=== PATIENT | female | born 2000 | race Caucasian/White ===

== ENCOUNTER 2018-01-22 12:14 | Emergency (ER) | payer MEDICAID ==
[2017-07-15 01:18] VITALS: Wt 63.5 kg
[~2018-01-22 12:14] MED LIST: IBUP800T37 PO; LOR5/325 PO; PREN-127 PO
--- NOTE | 2018-01-22 12:26 | ER Report ---
History and Physical Time Seen By MD: 12:26 Hx. of Stated Complaint: AROUND 5AM TODAY, PT WENT TO STAND UP, RT FOOT WAS ALSEEP. SHE STOOD UP, SHE HEARD A SNAP AND FELT A WARM SENSATION UP LEG HPI/ROS CHIEF COMPLAINT: Right ankle pain HISTORY OF PRESENT ILLNESS: 17-year-old female patient presents to emergency room with complaint of right ankle pain. Patient states that she was this morning while she was in bed. She got up to put the baby in a crib. She states that when she did that she felt a popping in her ankle. She states that she had significant amounts of pain. She rated the pain a 10 out of 10 at that time. She states that she'll most passed out because pain was so significant. She states that since then she's not been able to bear any weight on that foot. She states that she does have no previous history of injury to the ankle. She states that currently she is pain-free. She states when she moves her ankle the pain does go up to a 5 out of 10. She did take hydrocodone which was left over from her delivery. Patient states she does have some tingling to the bottom of her foot. REVIEW OF SYSTEMS: Respiratory: No cough, no dyspnea. Cardiovascular: No chest pain, no palpitations. Gastrointestinal: No vomiting, no abdominal pain. Musculoskeletal: As noted above Allergies: Coded Allergies: No Known Drug Allergies (Unverified , 01/22/18) Home Meds Active Scripts Ibuprofen (IBUPROFEN) 800 Mg Tablet, 800 MG PO Q8H, #30 TAB 0 Refills Prov:JOHN WHEAT DO 07/16/17 Hydrocodone Bit/Acetaminophen (HYDROCODON-ACETAMINOPHEN 5-325) 1 Each Tablet, 1- 2 EACH PO Q4H PRN for PAIN, #30 TAB 0 Refills Prov:JOHN WHEAT DO 07/16/17 Reported Medications Vits W-Ca,Fe,Fa(<1MG) ( VITAMINS) 1 Each Tablet, 1 EACH PO DAILY, TAB 07/15/17 Past Medical/Surgical History Patient has a past medical history of reflux. Patient has no pertinent surgical history. Reviewed Nurses Notes: Yes Hx Smoking: No Smoking Status: Never Smoker Exposure to Second Hand Smoke?: No Hx Substance Use Disorder: No Hx Alcohol Use: No Constitutional Vital Sign - Last 24 Hours 10/08/0601/22/18 01/22/18 01/22/18 12:14 12:17 12:19 12:29 Temp 98.2 Pulse ??? 93 88 Resp 14 B/P (MAP) 116/88 116/88 (97) Pulse Ox 97 99 O2 Delivery Room Air 01/22/18 01/22/18 01/22/18 01/22/18 12:30 12:44 12:59 13:00 Pulse 91 94 B/P (MAP) 113/81 (92) 109/74 (86) Pulse Ox 98 95 01/22/18 01/22/18 01/22/18 01/22/18 13:14 13:29 13:30 13:44 Pulse 87 82 85 B/P (MAP) 111/65 (80) Pulse Ox 96 96 94 01/22/18 01/22/18 13:59 14:00 Pulse 105 B/P (MAP) ???/??? (1665) Pulse Ox 96 Physical Exam General appearance: Alert no distress. Respiratory: Chest is non tender, lungs are clear to auscultation. Cardiac: Regular rate and rhythm. Musculoskeletal: Patient does have slight bruising to the right ankle, she has tenderness over the lateral malleolus. There is no bruising noted. Patient has good strength with plantarflexion and dorsiflexion. DIFFERENTIAL DIAGNOSIS: After history and physical exam differential diagnosis was considered for sprain, contusion, fracture. Medical Decision Making EKG/Imaging Imaging EXAMINATION: Right ankle 3 views HISTORY: Fall with pain. COMPARISON: None. FINDINGS: No evidence of acute fracture or dislocation about the right ankle. Normal alignment at the ankle mortise. Soft tissues are unremarkable. IMPRESSION: Negative right ankle. Report Dictated By: Graham Kruse MD at 01/22/2018 1:51 PM Report E-Signed By: Graham Kruse MD at 01/22/2018 1:52 PM ED Course/Re-evaluation ED Course Patient was administered examined, history and physical were obtained. Differential diagnoses were considered. On examination patient had mild swelling. She had some tenderness to the lateral malleolus, there is no weakness with dorsiflexion or plantarflexion. X-rays done of the right ankle which was negative. I discussed the findings with the patient. We will go ahead and discharge her home. Patient was placed in an Fili wrap. She is to follow-up with her primary care provider normally. She's instructed to return to the emergency room if condition worsens. Patient verbalized understanding and agreement with plan. Decision to Disposition Date: Jan 22, 2018 Decision to Disposition Time: 14:00 Depart Departure Latest Vital Signs Vital Signs Date Time Temp Pulse Resp B/P (MAP) Pulse Ox O2 Delivery O2 Flow Rate FiO2 01/22/18 14:00 ???/??? (1665) 01/22/18 13:59 105 96 01/22/18 12:17 98.2 14 Room Air Impression: Primary Impression: Ankle sprain Condition: Improved Disposition: HOME OR SELF-CARE Referrals: JOHN WHEAT DO (PCP) Patient Instructions: Ankle Sprain (ED) Additional Instructions: Limit activity by pain. Ice the ankle 2-3 times a day for 10-15 minutes. Return to the ER if condition worsens. Follow up with your primary care provider in 1 week. Continue to use the crutches until you can put more weight on your foot. Take Tylenol or Ibuprofen as needed for pain. In a couple of days start doing alphabet exercises in warm water. Problem Qualifiers Primary Impression: Ankle sprain Encounter type: initial encounter Involved ligament of ankle: unspecified ligament Laterality: right Qualified Codes: S93.401A - Sprain of unspecified ligament of right ankle, initial encounter TRAVIS CIFUENTES Jan 22, 2018 12:26
--- NOTE | 2018-01-22 13:56 | RADIOLOGY IMAGING REPORT ---
FACILITY: [facility] [place] PATIENT NAME: Noni Heard : 2000 MR: [id number] V: [id number] EXAM DATE: ORDERING PHYSICIAN: TRAVIS CIFUENTES TECHNOLOGIST: Location: [facility] [place] Patient: Noni Heard : 2000 Visit/Account:[id number] Date of Sevice: 01/22/2018 EXAMINATION: Right ankle 3 views HISTORY: Fall with pain. COMPARISON: None. FINDINGS: No evidence of acute fracture or dislocation about the right ankle. Normal alignment at the ankle mo rtise. Soft tissues are unremarkable. IMPRESSION: Negative right ankle. Report Dictated By: Graham Kruse MD at 01/22/2018 1:51 PM Report E-Signed By: Graham Kruse MD at 01/22/2018 1:52 PM WSN:[id number]
== END 2018-01-22 14:10 | disposition home or self-care (01) ==
LOC: ER 12:16
DX: S93.401A Sprain of unspecified ligament of right ankle, initial encounter (principal)
CPT/HCPCS: 99283

== ENCOUNTER 2018-05-20 18:33 | Emergency (ER) | payer MEDICAID ==
[2017-07-15 01:18] VITALS: Wt 59.0 kg
[2018-05-20] MEDS ORDERED: LORA10CA3 PO (18:42)
--- NOTE | 2018-05-20 18:54 | ER Report ---
History and Physical Time Seen By MD: 18:44 Hx. of Stated Complaint: PT HAS HAD SORE THROAT INTERMITTANTLY FOR SEVERAL WEEKS; TODAY NOTED SWELLING IN LYMPH NODES, AND SWELLING IN FACE, WITH PAIN AND ITCHING HPI/ROS CHIEF COMPLAINT: Sore throat, swelling to right cheek HISTORY OF PRESENT ILLNESS: 17-year-old female patient presents to the emergency room with complaint of sore throat and swelling to right cheek. Patient states that she's had a sore throat intermittently for 3 weeks. She states for the last week has been very constant. She denies having any fevers, chills, nausea, vomiting or diarrhea. Patient states she is able to eat and drink without any difficulties. Patient states that she has had swelling to the right cheek for the past 2 days. She states that yesterday was in so bad that stays gotten sign ificantly worse. Patient does have a pimple located on the right cheek which she states she did pick at. She states that she does have some pain, however she does feel that that is tolerable. REVIEW OF SYSTEMS: Respiratory: No cough, no dyspnea. Cardiovascular: No chest pain, no palpitations. Gastrointestinal: No vomiting, no abdominal pain. Musculoskeletal: No back pain. Allergies: Coded Allergies: No Known Drug Allergies (Unverified , 01/22/18) Home Meds Active Scripts Cephalexin 500 Mg Tab (KEFLEX 500 MG TAB) 500 Mg Tablet, 500 MG PO Q6H, #28 TAB Prov:TRAVIS CIFUENTES 05/20/18 Sulfamethoxazole/Trimet 800-160 Mg Tab (BACTRIM DS TABLET) 1 Each Tablet, 1 TAB PO Q12H, #14 TAB Prov:TRAVIS CIFUENTES 05/20/18 Ibuprofen (IBUPROFEN) 800 Mg Tablet, 800 MG PO Q8H, #30 TAB 0 Refills Prov:JOHN WHEAT DO 07/16/17 Reported Medications Loratadine (CLARITIN) 10 Mg Capsule, 10 MG PO, CAPSULE 05/20/18 Discontinued Reported Medications Vits W-Ca,Fe,Fa(<1MG) ( VITAMINS) 1 Each Tablet, 1 EACH PO DAILY, TAB 07/15/17 Discontinued Scripts Hydrocodone Bit/Acetaminophen (HYDROCODON-ACETAMINOPHEN 5-325) 1 Each Tablet, 1- 2 EACH PO Q4H PRN for PAIN, #30 TAB 0 Refills Prov:JOHN WHEAT DO 07/16/17 Past Medical/Surgical History Patient has a past medical history of reflux, occasional alcohol use. Patient denies any surgical history. Reviewed Nurses Notes: Yes Hx Smoking: No Smoking Status: Never Smoker Exposure to Second Hand Smoke?: No Hx Substance Use Disorder: No Hx Alcohol Use: Yes (OCC) Constitutional Vital Sign - Last 24 Hours 05/20/18 05/20/18 05/20/18 05/20/18 18:36 18:37 18:48 19:00 Temp 98.1 Pulse 83 82 Resp 20 B/P (MAP) 104/79 (87) 104/79 103/79 (87) Pulse Ox 98 98 O2 Delivery Room Air 05/20/18 05/20/18 05/20/18 05/20/18 19:03 19:18 19:30 19:33 Pulse 82 83 89 B/P (MAP) 99/77 (84) Pulse Ox 94 93 97 05/20/18 05/20/18 05/20/18 19:48 19:53 20:00 Pulse 91 94 B/P (MAP) 94/75 (81) Pulse Ox 98 98 Physical Exam General Appearance: The patient is alert, has no immediate need for airway protection and no current signs of toxicity. Respiratory: Chest is non tender, lungs are clear to auscultation. Cardiac: regular rate and rhythm Gastrointestinal: Abdomen is soft and non tender, no masses, bowel sounds normal. Musculoskeletal: Neck: Neck is supple and non tender. Extremities have full range of motion and are non tender. Skin: No rashes or lesions. Patient does have swelling to the right cheek, is erythematous, warm to the touch. I believe that it is originating from the pimple. DIFFERENTIAL DIAGNOSIS: After history and physical exam differential diagnosis was considered for cellulitis, mono, viral syndrome. Medical Decision Making Data Points Result Diagram: 05/20/18191705/20/181917 Laboratory Hematology Test 05/20/18 19:18 Red Blood Count 5.08 M/uL (4.17-5.56) Mean Corpuscular Volume 82.5 fL (80.0-96.0) Mean Corpuscular Hemoglobin 28.2 pg (26.0-33.0) Mean Corpuscular Hemoglobin Concent 34.2 g/dL (32.0-36.0) Red Cell Distribution Width 12.9 % (11.5-14.5) Mean Platelet Volume 8.3 fL (7.2-11.1) Neutrophils (%) (Auto) 73.0 % (39.4-72.5) Lymphocytes (%) (Auto) 18.6 % (17.6-49.6) Monocytes (%) (Auto) 5.4 % (4.1-12.4) Eosinophils (%) (Auto) 2.6 % (0.4-6.7) Basophils (%) (Auto) 0.4 % (0.3-1.4) Nucleated RBC Relative Count (auto) 0.0 /100WBC Neutrophils # (Auto) 9.1 K/uL (2.0-7.4) Lymphocytes # (Auto) 2.3 K/uL (1.3-3.6) Monocytes # (Auto) 0.7 K/uL (0.3-1.0) Eosinophils # (Auto) 0.3 K/uL (0.0-0.5) Basophils # (Auto) 0.0 K/uL (0.0-0.1) Nucleated RBC Absolute Count (auto) 0.00 K/uL Sodium Level 139 mmol/L (137-145) Potassium Level 3.8 mmol/L (3.5-5.0) Chloride Level 109 mmol/L (98-107) Carbon Dioxide Level 26 mmol/L (22-31) Blood Urea Nitrogen 10 mg/dl (7-18) Creatinine 0.70 mg/dl (0.52-1.04) Glomerular Filtration Rate Calc > 60.0 Random Glucose 80 mg/dl (75-110) Calcium Level 9.1 mg/dl (8.4-10.2) Total Bilirubin 0.2 mg/dl (0.2-1.3) Aspartate Amino Transf (AST/SGOT) 21 U/L (0-35) Alanine Aminotransferase (ALT/SGPT) 21 U/L (0-56) Alkaline Phosphatase 100 U/L (0-126) Total Protein 8.1 g/dl (6.3-8.2) Albumin 4.4 g/dl (3.5-5.0) Monoscreen Negative (NEGATIVE) Chemistry Test 05/20/18 19:18 White Blood Count 12.4 k/uL (4.5-11.0) Red Blood Count 5.08 M/uL (4.17-5.56) Hemoglobin 14.3 g/dL (12.0-16.0) Hematocrit 41.9 % (34.0-47.0) Mean Corpuscular Volume 82.5 fL (80.0-96.0) Mean Corpuscular Hemoglobin 28.2 pg (26.0-33.0) Mean Corpuscular Hemoglobin Concent 34.2 g/dL (32.0-36.0) Red Cell Distribution Width 12.9 % (11.5-14.5) Platelet Count 304 K/uL (150-450) Mean Platelet Volume 8.3 fL (7.2-11.1) Neutrophils (%) (Auto) 73.0 % (39.4-72.5) Lymphocytes (%) (Auto) 18.6 % (17.6-49.6) Monocytes (%) (Auto) 5.4 % (4.1-12.4) Eosinophils (%) (Auto) 2.6 % (0.4-6.7) Basophils (%) (Auto) 0.4 % (0.3-1.4) Nucleated RBC Relative Count (auto) 0.0 /100WBC Neutrophils # (Auto) 9.1 K/uL (2.0-7.4) Lymphocytes # (Auto) 2.3 K/uL (1.3-3.6) Monocytes # (Auto) 0.7 K/uL (0.3-1.0) Eosinophils # (Auto) 0.3 K/uL (0.0-0.5) Basophils # (Auto) 0.0 K/uL (0.0-0.1) Nucleated RBC Absolute Count (auto) 0.00 K/uL Glomerular Filtration Rate Calc > 60.0 Calcium Level 9.1 mg/dl (8.4-10.2) Total Bilirubin 0.2 mg/dl (0.2-1.3) Aspartate Amino Transf (AST/SGOT) 21 U/L (0-35) Alanine Aminotransferase (ALT/SGPT) 21 U/L (0-56) Alkaline Phosphatase 100 U/L (0-126) Total Protein 8.1 g/dl (6.3-8.2) Albumin 4.4 g/dl (3.5-5.0) Monoscreen Negative (NEGATIVE) ED Course/Re-evaluation ED Course Patient was admitted to an exam room, history and physical were obtained. Differential diagnoses were considered. On examination patient does have redness, erythema and warmth to the right cheek, throat does look slightly reddened. An IV was started, a CBC, CMP, Monospot were done. Monospot was negative, CBC showed an elevated white count of 12,000 with a left shift. CMP showed no acute changes. Patient did receive a dose of 600 mg of IV clindamycin. She did have no problems with that. I discussed the findings of lab work with the patient. I believe that increased white count is secondary to the cellulit is. We will go ahead and place her on Bactrim and Keflex. She is to follow-up with somebody in 72 hours for reevaluation. She is return to emergency room if condition worsens. I would like her to use Tylenol ibuprofen as needed pain. Patient verbalized understanding and agreement with plan. Decision to Disposition Date: May 20, 2018 Decision to Disposition Time: 19:53 Depart Departure Latest Vital Signs Vital Signs Date Time Temp Pulse Resp B/P (MAP) Pulse Ox O2 Delivery O2 Flow Rate FiO2 05/20/18 20:00 94/75 (81) 05/20/18 19:53 94 98 05/20/18 18:37 98.1 20 Room Air Impression: Primary Impression: Facial cellulitis Condition: Improved Disposition: HOME OR SELF-CARE Referrals: JOHN WHEAT DO (PCP) New Scripts Cephalexin 500 Mg Tab (KEFLEX 500 MG TAB) 500 Mg Tablet 500 MG PO Q6H, #28 TAB Prov: TRAVIS CIFUENTES 05/20/18 Sulfamethoxazole/Trimet 800-160 Mg Tab (BACTRIM DS TABLET) 1 Each Tablet 1 TAB PO Q12H, #14 TAB Prov: TRAVIS CIFUENTES 05/20/18 Patient Instructions: Cellulitis (ED) Additional Instructions: Take antibiotics as directed. Limit activity by pain. Take Tylenol or Ibuprofen as needed for pain. Return to the ER if condition worsens. This may get a little bit worse over the next 24 hours, if things get much worse come back to be evaluated. Follow up with someone, I would recommend an urgent care on Friday or Friday. TRAVIS CIFUENTES May 20, 2018 18:54
[2018-05-20] MEDS ORDERED: CLINDAMYCIN(*) 600 MG/NS 50 ML 50 ML IVPB ONE (19:05)
[2018-05-20 19:31] LABS: PLATELET COUNT, AUTOMATED 304 K/uL (150-450)
[2018-05-20] MEDS ORDERED: SULF-198 PO (19:51)
[2018-05-20] MEDS ORDERED: CEPH500T7 PO (19:51)
[2018-05-20 20:00] VITALS: BP 94/75
== END 2018-05-20 20:03 | disposition home or self-care (01) ==
LOC: ER 18:48
DX: L03.211 Cellulitis of face (principal)
CPT/HCPCS: 85025; 86308; 96365; 99283; J3490; 82040; 82247; 82310; 82374; 82435; 82565; 82947; 84075; 84132; 84155; 84295; 84450; 84460; 84520